=== PATIENT | male | born 1960 | race Two or more races ===

== ENCOUNTER → 2017-12-03 | Day surgery (SDC) | payer BC ==
[~2017-12-03] MED LIST: LIDOCAINE 1% INJ-PF (10 MG/ML) 30 ML SDV ONE
--- NOTE | 2017-12-03 16:16 | RADIOLOGY REPORT (SQ) ---
EXAM DESCRIPTION: ARTHRO WRIST INJECTION; FLUORO/NEEDLE PLACEMENT COMPLETED DATE/TIME: 12/03/2017 2:47 pm REASON FOR STUDY: OTHER SPECIFIC JOINT DERANGEMENTS OF LEFT WRIST NEC (M24.832) M24.832 OT SPECIFI C JOINT DERANGEMENTS OF LEFT WRIST, NEC COMPARISON: None. FLUOROSCOPY TIME: 9 seconds. 1 images saved to PACS. LIMITATIONS: None. PROCEDURE: Procedure, risks, benefits and alternatives explained to patient who then gave written co nsent. The left wrist was marked and a time-out was called for correct marking verification. Radioca rpal site marked using fluoroscopic guidance. Wrist prepped and draped using sterile technique. Loc al anesthesia achieved using 1% lidocaine injection. Hypodermic needle introduced into the joint spa ce under direct fluoroscopic visualization. Non-ionic contrast instilled to confirm intra-articular p osition. Dilute gadolinium solution then injected. Needle removed and entry site covered with steril e bandage. No immediate complications noted. TECHNIQUE: Digital images acquired during fluoroscopy and stored on PACS. Patient immediately take n to the MR suite for additional imaging. INJECTION LOCATION: Left wrist. CONTRAST TYPE AND AMOUNT: 1 mL Isovue-300 and 3 mL Prohance/Saline mixture. IMPRESSION: SUCCESSFUL NEEDLE PLACEMENT AND INJECTION FOR LEFT WRIST MR ARTHROGRAM. COMMENT: Quality ID #[id number]: Final reports for procedures using fluoroscopy that document radiation exp osure indices, or exposure time and number of fluorographic images (if radiation exposure indices are not available) TECHNICAL DOCUMENTATION: JOB ID: [id number] [employer]- All Rights Reserved Reading location - IP/workstation name: [email or web address]
--- NOTE | 2017-12-03 16:16 | RADIOLOGY REPORT (SQ) ---
EXAM DESCRIPTION: ARTHRO WRIST INJECTION; FLUORO/NEEDLE PLACEMENT COMPLETED DATE/TIME: 12/03/2017 2:47 pm REASON FOR STUDY: OTHER SPECIFIC JOINT DERANGEMENTS OF LEFT WRIST NEC (M24.832) M24.832 OT SPECIFI C JOINT DERANGEMENTS OF LEFT WRIST, NEC COMPARISON: None. FLUOROSCOPY TIME: 9 seconds. 1 images saved to PACS. LIMITATIONS: None. PROCEDURE: Procedure, risks, benefits and alternatives explained to patient who then gave written co nsent. The left wrist was marked and a time-out was called for correct marking verification. Radioca rpal site marked using fluoroscopic guidance. Wrist prepped and draped using sterile technique. Loc al anesthesia achieved using 1% lidocaine injection. Hypodermic needle introduced into the joint spa ce under direct fluoroscopic visualization. Non-ionic contrast instilled to confirm intra-articular p osition. Dilute gadolinium solution then injected. Needle removed and entry site covered with steril e bandage. No immediate complications noted. TECHNIQUE: Digital images acquired during fluoroscopy and stored on PACS. Patient immediately take n to the MR suite for additional imaging. INJECTION LOCATION: Left wrist. CONTRAST TYPE AND AMOUNT: 1 mL Isovue-300 and 3 mL Prohance/Saline mixture. IMPRESSION: SUCCESSFUL NEEDLE PLACEMENT AND INJECTION FOR LEFT WRIST MR ARTHROGRAM. COMMENT: Quality ID #[id number]: Final reports for procedures using fluoroscopy that document radiation exp osure indices, or exposure time and number of fluorographic images (if radiation exposure indices are not available) TECHNICAL DOCUMENTATION: JOB ID: [id number] [employer]- All Rights Reserved Reading location - IP/workstation name: [facility]
--- NOTE | 2017-12-03 16:40 | RADIOLOGY REPORT (SQ) ---
EXAM DESCRIPTION: MRI LT UPPER JOINT WITH COMPLETED DATE/TIME: 12/03/2017 4:06 pm REASON FOR STUDY: OTHER SPECIFIC JOINT DERANGEMENTS OF LEFT WRIST NEC (M24.832) M24.832 OT SPECIFI C JOINT DERANGEMENTS OF LEFT WRIST, NEC COMPARISON: None. TECHNIQUE: Left wrist post-arthrogram imaging includes T1 and T1 and T2 fat sat sequences. LIMITATIONS: Patient motion. FINDINGS: JOINT DISTENSION: Adequate. No loose body. BONE MARROW: Mild subchondral cyst formation in the lunate and triquetrum. CARPAL ALIGNMENT AND ARTICULATION: Normal congruity of sigmoid notch at level of distal ruj without p ositive or negative ulnar variance. Normal capitolunate angle. No widening of scapholunate articulati on. SCAPHOLUNATE LIGAMENT: No tear identified. LUNATO-TRIQUETRAL LIGAMENT: No tear identified. TFC COMPLEX: Contrast in the distal radioulnar joint. There is increased signal in the ulnar attachm ent and along the volar margin of the triangular fibrocartilage. There is abnormal signal in the adj acent extensor carpi ulnaris tendon, but no subluxation. No significant tendon sheath fluid. EXTRINSIC LIGAMENTS AND DISTAL RADIO-ULNAR JOINT: Dorsal and volar distal RUJ ligaments intact withou t subluxation of the distal ulna with respect to the radius. 1-6 EXTENSOR COMPARTMENTS: Normal. Specifically no tendinopathy of the abductor pollicis longus or ex tensor pollicis brevis to suggest de Quervains syndrome. CARPAL TUNNEL AND MEDIAN NERVE: Normal volume and morphology of carpal tunnel proximal at the level o f the radiocarpal joint and distally at the hook of the hamate. No thickening or signal alteration of median nerve. OTHER: No other significant finding. IMPRESSION: Partial tear of the ulnar attachment of the triangular fibrocartilage with tendinopathy in the adjacent extensor carpi ulnaris. Perforation/partial tear of the radial margin of the triangu lar fibrocartilage. TECHNICAL DOCUMENTATION: JOB ID: [id number] [employer]- All Rights Reserved Reading location - IP/workstation name: [email or web address]
== END ==
LOC: RAD 13:52
PROVIDERS: ATTEND Physician Assistant
PROC: BP0MZZZ Plain Radiography of Left Wrist (ICD-10-PCS; principal; 2017-12-03)
DX: S63.592A Other specified sprain of left wrist, initial encounter (principal); X58.XXXA Exposure to other specified factors, initial encounter
CPT/HCPCS: 73222; 25246; 77002; J3490